=== PATIENT | female | born 1950 | race Caucasian/White ===

== ENCOUNTER 2016-06-02 10:11 | Emergency (ER) | payer OTHER ==
--- NOTE | ~2016-06-02 | CR127 ---
[facility] A Service of [facility] & [facility] RADIOLOGY TEXT RESULTS PATIENT: HERNAN BUITRAGO LOCATION: CFTX : 52 UNIT #: [id number] AGE: [address]: Demi Sigala SEX: F ORDER DR: [id number] [facility] [address] [place], [place] [address] [id number] E MR#: [id number] Acc #: [id number] NAME: HERNAN BUITRAGO : 1950 SEX: F STUDY DATE/TIME: 06/02/2016 9:51 UNIT: [facility] ROOM: STUDY DESCRIPTION: CR Foot Complete Min 3 View Rt Attending Physician: Demi Sigala P.A.-C. Ordering Physician: Demi Sigala P.A.-C. Primary Care Physician: Eliud Cruz M.D. MEDICAL IMAGING REPORT This report is preliminary unless electronic signature is present EXAM Right foot 06/02 INDICATIONS Right foot and ankle pain for 3 days. No trauma. FINDINGS 3 views of the right foot were obtained. Small posterior plantar and calcaneal spurs are present. There is no fracture or malalignment identified. The remainder of the foot is normal. IMPRESSION Mild calcaneal spurring, otherwise negative right foot. Dictated by... Perry Snowden Jr., M.D. THIS IS AN ELECTRONICALLY VERIFIED REPORT Perry Snowden Jr., M.D. at 06/02/2016 1:37 PM RLK/to TD: 06/02/2016 12:51 JOB #: [id number] MEDICAL IMAGING REPORT Page 1 of 1 COPY
--- NOTE | ~2016-06-02 | CR21 ---
[facility] A Service of [facility] & [facility] RADIOLOGY TEXT RESULTS PATIENT: HERNAN BUITRAGO LOCATION: CFTX : 52 UNIT #: [id number] AGE: [address]: Demi Sigala SEX: F ORDER DR: [id number] [facility] [address] [place], [place] [address] [id number] E MR#: [id number] Acc #: [id number] NAME: HERNAN BUITRAGO : 1950 SEX: F STUDY DATE/TIME: 06/02/2016 9:51 UNIT: [facility] ROOM: STUDY DESCRIPTION: CR Ankle Min 3 Views Rt Attending Physician: Demi Sigala P.A.-C. Ordering Physician: Demi Sigala P.A.-C. Primary Care Physician: Eliud Cruz M.D. MEDICAL IMAGING REPORT This report is preliminary unless electronic signature is present EXAM Right ankle 06/02 INDICATIONS Ankle pain and foot pain for 3 days. No known trauma. FINDINGS 3 views of the right ankle were obtained. Small posterior plantar calcaneal spurs are present. No acute fracture or malalignment. Mortise is intact. The soft tissues are unremarkable. IMPRESSION Mild calcaneal spurring, otherwise negative right ankle. Dictated by... Perry Snowden Jr., M.D. THIS IS AN ELECTRONICALLY VERIFIED REPORT Perry Snowden Jr., M.D. at 06/02/2016 1:37 PM SUNNY/kathleen TD: 06/02/2016 13:06 JOB #: [id number] MEDICAL IMAGING REPORT Page 1 of 1 COPY
== END 2016-06-02 10:45 | disposition home or self-care (01) ==
LOC: CFTX 10:11
DX: M25.571 Pain in right ankle and joints of right foot (principal); E11.9 Type 2 diabetes mellitus without complications; K21.9 Gastro-esophageal reflux disease without esophagitis; I10 Essential (primary) hypertension; E78.5 Hyperlipidemia, unspecified
CPT/HCPCS: 29515; 73610; 73630; 99283